=== PATIENT | male | born 1995 | race Caucasian/White ===

== ENCOUNTER 2020-02-08 13:11 | Emergency (ER) | payer OTHER, SELFPAY ==
[2020-02-08 14:22] VITALS: BP 149/85; PULSE 71; RESP 18; TEMP 36.7; O2SAT 99; BMI 36.2
--- NOTE | 2020-02-08 15:07 | ED.EYEPROB ---
HPI - Eye Problem General Chief complaint: Eye Problems Stated complaint: ?pink eye Time Seen by Provider: 02/08/20 15:07 Source: patient and family Mode of arrival: ambulatory Limitations: no limitations History of Present Illness HPI Narrative: 24 y/o male here with right eyelid swelling and yellow drainage from the eye that started this morning. Father reports a few days ago he notice some mild lower lid swelling. He was putting warm compresses on the eye two times per day. Today woke up with increased swelling and crusting of eyelid shut. Patient has a habit of recurrently touching and rubbing his eyes. chief complaint: eye pain and eye redness Onset (ago): day(s) (1) Onset description: gradual Duration: constant Location: right eye Eye Symptoms: redness, pain and discharge Place: home Mechanism: none Severity: moderate If Pain, Quality: aching Associated symptoms: none Treatments Prior to Arrival: none Related Data Previous Rx's Medication Instructions Recorded erythromycin 0.5 inch OPHTHALMIC (EYE) TID #3.5 02/08/20 g Allergies Allergy/AdvReac Type Severity Reaction Status Date / Time No Known Allergies Allergy Verified 02/08/20 14:26 [No Known Allergies*] Review of Systems Review of Systems: Constitutional: No Fever, No Chills ENT/Mouth: No sore throat, No Rhinorrhea, No Swallowing Difficulty Eyes: + Eye Pain, + Swelling, + Redness, +Drainage Cardiovascular: No Chest Pain, No SOB Respiratory: No Cough Gastrointestinal: No Nausea, No Vomiting, No Diarrhea, No abdominal Pain Musculoskeletal: No joint pain, No Myalgias Skin: No Skin Lesions, No rash Neuro: No Headache PMFSH Past Medical History Attestation statement: The following information was validated with the patient. Medical History (Updated 02/08/20 @ 15:10 by MIREILLE Cisse) No known health problems Social History Social History Advance Directives: No Advance Directives Information Provided: Yes Physical Exam Vital Signs: Vital Signs: Last Vital Signs Temp 98.1 F 02/08/20 14:22 Pulse 71 02/08/20 14:22 Resp 18 02/08/20 14:22 BP 149/85 H 02/08/20 14:22 Pulse Ox 99 02/08/20 14:22 Body Mass Index 36.2 Appearance: Alert. Oriented X3. No acute distress. HEENT: right eye lower lid with medial pustule and surrounding erythema of lid. yellow crusting in upper and lower lashes, mild scleral injection inferiorly, no periorbital erythema. normal appearance of left eye Respiratory: No respiratory distress. Skin: Skin warm and dry. Normal skin color. Normal skin turgor. No rashes. Neuro: Oriented X 3. No motor deficit. No sensory deficit. Course Course Course Narrative: 24 y/o male presenting with right eye stye. area cleaned and examined, able to express a small amount of pus from the lower inner eyelid. will give antibacterial ointment for possible conjunctivitis as well given crusting and drainage. warm compresses discussed with father. stable for d/c. follow up with PCP this week. MDM - Eye Problem Differential Diagnosis Differential diagnosis: Likely corneal abrasion, conjunctivitis, acute iritis, hyphema, periorbital cellulitis, subconjunctival hemorrhage, glaucoma and corneal ulcer Medical Records Attestation: I reviewed the patient's medical records. Discharge Plan Discharge Clinical Impression: External hordeolum Qualifiers: Laterality: right Eyelid: lower Qualified Code(s): H00.012 - Hordeolum externum right lower eyelid Patient Disposition: Home, Self-Care Instructions: Thu (ED) Additional Instructions: Use warm compresses several times per day to help with drainage and pain. Do not touch your eyes. Use the antibiotic ointment as prescribed until all symptoms are completely resolved. Follow up with your doctor this week. Prescriptions: New erythromycin 5 mg/gram (0.5 %) ointment 0.5 inch ophthalmic (eye) TID Qty: 3.5 RF: 0
== END 2020-02-08 15:29 | disposition home or self-care (01) ==
PROVIDERS: Emergency Provider Emergency Medicine
DX: H00.012 Hordeolum externum right lower eyelid (principal); H57.11 Ocular pain, right eye
CPT/HCPCS: 99283